=== PATIENT | female | born 1965 | race Hispanic/Latino ===

== ENCOUNTER 2025-02-15 13:23 | Outpatient (CLI) | payer OTHER ==
[2025-02-15 14:17] LABS: Estimated GFR - POC 99.0
[2025-02-15] MEDS ORDERED: Iopamidol 370 76% 100 ML VIAL ONE (14:53)
== END 2025-02-15 13:24 | disposition home or self-care (01) ==
LOC: CT 13:23
PROVIDERS: ATTEND Nurse Practitioner Family
DX: N28.89 Other specified disorders of kidney and ureter (principal)
CPT/HCPCS: 74170; 82565; Q9967